=== PATIENT | male | born 1940 | race Caucasian/White ===

== ENCOUNTER → 2016-06-30 | Outpatient (CLI) | payer MEDICARE, BC, OTHER ==
[~2016-06-30] MED LIST: ASPI-482 PO; NAPR220C4 PO; SIMV20TA3 PO
--- NOTE | 2016-06-30 13:34 | RAD ---
PROCEDURE MRI cervical spine without contrast. HISTORY Bilateral arm pain for 1 week TECHNIQUE Sagittal and axial T2, sagittal T1, sagittal STIR images were acquired of the cervical spine. Contrast: None COMPARISON None FINDINGS There is mild motion. Cervical cord caliber is within normal limits without significant focal signal abnormality allowing for artifact. There is mild reversal of the lordotic curvature centered at C5-C6. There is very minimal grade 1 anterior spondylolisthesis C3-C4. Cervical vertebral body stature is adequate. There is moderate to severe degenerative disc disease C5-C6 and C6-7. There is no significant focal marrow edema. There is mild mucosal thickening of the visualized maxillary sinuses bilaterally. C2-3: Spinal canal and neural foramina are adequate. C3-C4: There is moderate to severe left and [id number] right facet degenerative change. There is minimal disc osteophyte complex and bulge. Central canal is borderline at 10 millimeters. There is uncovertebral degenerative change greater on the left. There is fairly severe narrowing of the left neural foramen, [id number] narrowing on the right. C4-C5: There is fairly severe facet degenerative change bilaterally. There is minimal disc osteophyte complex. Central canal is adequate 11 millimeters. There is uncovertebral degenerative change greater on the left. There is fairly severe, left greater than right neural foramina compromise. C5-C6: There is minimal disc osteophyte complex. Spinal canal is adequate. There is mild uncovertebral degenerative change. There is fairly severe left and moderate to severe right neural foramina compromise. C6-C7: Spinal canal is adequate. Right neural foramen is adequate, fairly severe narrowing of the left neural foramen in part from uncovertebral degenerative change. C7-T1: Spinal canal is adequate. There is mild dorsal narrowing of the left neural foramen by facet hypertrophic change, right neural foramen overall adequate. IMPRESSION 1. There is multilevel neural foramina compromise in part from facet and uncovertebral degenerative change, more significant narrowing on the left at C3-C4 and C6-7 and bilaterally at C4-5 and C5-C6. 2. There is no significant cervical spinal stenosis. 3. There is moderate to severe degenerative disc disease C5-C6 and C6-7. There is mild spondylosis. Electronically signed by: Israel Valle MD (Jun 30, 2016 13:30:42)
== END | disposition home or self-care (01) ==
LOC: MRI 12:14
PROVIDERS: ATTEND Physician Assistant Medical
DX: M54.12 Radiculopathy, cervical region (principal); M50.323 Other cervical disc degeneration at C6-C7 level; M47.892 Other spondylosis, cervical region
CPT/HCPCS: 72141